=== PATIENT | female | born 1990 | race Caucasian/White ===

== ENCOUNTER 2018-05-09 00:12 | Inpatient (IN) | payer OTHER ==
[~2018-05-09] VITALS: Ht 157.5 cm; Wt 71.2 kg
[2018-05-10] MEDS ORDERED: OXYTOCIN/0.9 % SODIUM CHLORIDE 1,000 ML IV SCH ×2 (00:23→15:12)
[2018-05-10] MEDS ORDERED: LR 1,000 ML IV ONE (00:23)
[2018-05-10] MEDS ORDERED: TERBUTALINE SULFATE 1 MG/ML VIAL SUBCUT ONE (00:30)
[2018-05-10] MEDS ORDERED: MISOPROSTOL 100 MCG TABLET (CYTOTEC) PO PRN (00:30)
[2018-05-10] MEDS ORDERED: AMPICILLIN SODIUM 2 GM in NS 100 ML IV ONE (00:30)
[2018-05-10 00:54] VITALS: BP_SYST 113
[2018-05-10 01:37] LABS: BASOPHILS # (AUTO) 0.1 K/uL (0.0-0.2); BASOPHILS % (AUTO) 0.5 % (0.0-2.0); EOSINOPHILS # (AUTO) 0.1 K/uL (0.0-0.4); HEMATOCRIT 35.1 % (36-48); HEMOGLOBIN 11.1 g/dL (12.0-16.0); LYMPHOCYTES # (AUTO) 2.2 K/uL (1.0-5.5); LYMPHOCYTES % (AUTO) 15.6 % (20.5-51.5); MEAN CORPUSCULAR HEMOGLOBIN 28 pg (27-31); MEAN CORPUSCULAR HGB CONC 32 % (32-36); MEAN CORPUSCULAR VOLUME 87 fL (79.0-98.0); MONOCYTES # (AUTO) 0.7 K/uL (0.0-1.0); MONOCYTES % (AUTO) 5.1 % (1.7-9.3); NEUTROPHILS # (AUTO) 10.8 K/uL (1.8-7.7); NEUTROPHILS % (AUTO) 77.8 % (40.0-70.0); PLATELET COUNT (AUTO) 313 K/uL (130-430); RED BLOOD CELL COUNT(AUTO) 4.05 MIL/uL (4.2-6.2); RED CELL DISTRIBUTION WIDTH 18.6 % (9.0-15.0); WHITE BLOOD COUNT (AUTO) 13.9 K/uL (4.8-10.8)
[2018-05-10] MEDS ORDERED: AMPICILLIN SODIUM 2 GM VIAL ONE (01:42)
[2018-05-10] MEDS: NALBUPHINE HCL 10 MG/ML AMP IVP PRN ×3 (05:24→10:19)
[2018-05-10] MEDS ORDERED: AMPICILLIN SODIUM 1 GM VIAL ONE (05:36)
[2018-05-10] MEDS: AMPICILLIN SODIUM 1 GM in NS 50 ML IV SCH ×3 (06:00→13:50)
[2018-05-10] MEDS: LR 1,000 ML IV SCH ×2 (07:59→12:47)
[2018-05-10] MEDS ORDERED: FENT2mCg/mL-ROPIVA0.2%/NS EPID 150 ML EP SCH (08:00)
[2018-05-10] MEDS ORDERED: fentaNYL CITRATE/PF 100 MCG/2 ML AMP ONE (08:10)
[2018-05-10] MEDS ORDERED: ROPIVACAINE 0.2% 100 ML ONE (08:11)
[2018-05-10] MEDS ORDERED: OXYTOCIN/0.9 % SODIUM CHLORIDE 1,000 ML IV ONE (15:12)
[2018-05-10] MEDS ORDERED: DERMOPLAST SPRAY TP PRN (15:15)
[2018-05-10] MEDS ORDERED: LANOLIN 7 GM OINT. TP PRN (15:15)
[2018-05-10] MEDS ORDERED: ACETAMINOPHEN 325 MG TABLET PO PRN (15:15)
[2018-05-10] MEDS ORDERED: DIPH-TET-PERTUS Vaccine 0.5 ML VIAL (ADACEL) I.M. PRN (15:15)
[2018-05-10] MEDS ORDERED: METHYLERGONOVINE MALEATE 0.2 MG TABLET PO PRN (15:15)
[2018-05-10] MEDS ORDERED: RHO(D) IMMUNE GLOBULIN/MALTOSE 1500 UNITS/1.3 ML (WINHRO) IM PRN (15:15)
[2018-05-10] MEDS ORDERED: ANUSOL 1 EA SUPP.RECT (PREPARATION H) RC PRN (15:15)
[2018-05-10] MEDS ORDERED: MEASLES,MUMPS&RUBELLA VACC/PF 12500 UNIT/0.5 ML VIAL SUBQ PRN (15:15)
[2018-05-10] MEDS ORDERED: HYDROCORTISONE 0.5%, 28.35 GM TOPICAL CREAM TP PRN (15:15)
[2018-05-10] MEDS ORDERED: WITCH HAZEL LEAF 1 MED.PAD MED.PAD TP PRN (15:15)
[2018-05-10] MEDS ORDERED: OXYCODONE/ACETAMINOPHEN 5-325 TABLET PO PRN ×2 (15:15)
[2018-05-10] MEDS: IBUPROFEN 600 MG TABLET PO SCH ×2 (15:35→22:24)
[2018-05-10] MEDS ORDERED: TEMAZEPAM 15 MG CAPSULE PO PRN (21:00)
[2018-05-11] MEDS: IBUPROFEN 600 MG TABLET PO SCH ×3 (06:11→19:07)
[2018-05-11 08:00] LABS: HEMATOCRIT 32.5 % (36-48); HEMOGLOBIN 10.9 g/dL (12.0-16.0)
[2018-05-11] MEDS ORDERED: MINERAL OIL 30 ML UDC PO ONE (18:45)
[2018-05-11] MEDS ORDERED: LIDOCAINE PF 1% 30ML(POUR BTL) INJ ONE (18:45)
[2018-05-11] MEDS ORDERED: DOCUSATE SODIUM 100 MG CAPSULE PO PRN (20:45)
[2018-05-11] MEDS ORDERED: DOCUSATE SODIUM 100 MG CAPSULE PO ONE (20:46)
[2018-05-12] MEDS: IBUPROFEN 600 MG TABLET PO SCH ×2 (00:28→05:50)
== END 2018-05-12 11:27 | disposition home or self-care (01) | DRG 807 ==
LOC: SPU 05-10 00:10
PROVIDERS: ADMIT Obstetrics & Gynecology; ATTEND Obstetrics & Gynecology
PROC: 10E0XZZ Delivery of Products of Conception, External Approach (ICD-10-PCS; principal; 2018-05-10)
PROC: 0KQM0ZZ Repair Perineum Muscle, Open Approach (ICD-10-PCS; 2018-05-10)
PROC: 3E0R3BZ Introduction of Anesthetic Agent into Spinal Canal, Percutaneous Approach (ICD-10-PCS; 2018-05-10)
PROC: 00HU33Z Insertion of Infusion Device into Spinal Canal, Percutaneous Approach (ICD-10-PCS; 2018-05-10)
DX: O24.420 Gestational diabetes mellitus in childbirth, diet controlled (principal); Z37.0 Single live birth; O99.824 Streptococcus B carrier state complicating childbirth; O70.1 Second degree perineal laceration during delivery; O76 Abnormality in fetal heart rate and rhythm complicating labor and delivery; O69.81X0 Labor and delivery complicated by cord around neck, without compression, not applicable or unspecified; Z3A.39 39 weeks gestation of pregnancy
CPT/HCPCS: 36415; 82947-TC; 82962; 85018-TC; 85025; 86592; 86886; 86900; 86901; J0290; J2001; J2300; J2795; J3010